=== PATIENT | male | born 1990 | race Caucasian/White ===

== ENCOUNTER 2018-04-24 10:33 | Emergency (ER) | payer OTHER ==
[~2018-04-24] VITALS: Wt 70.3 kg
--- NOTE | 2018-04-24 16:04 | ERD ---
ER Documentation Chief Complaint Chief Complaint withdrawing from heroin; last use this AM; L arm pain fr abscess HPI 27-year-old male with a history of heroin abuse presenting with complaints of left upper arm lump that he has had for several days. This started after he missed his vein while injecting heroin. He complains of pain at the site. Currently he states he is withdrawing from heroin with body aches and does not feel well. No fevers or chills. He has had nausea and vomiting prior to arrival but not currently. He denies any current abdominal pain. His last use of heroin was today. ROS All systems reviewed and are negative except as per history of present illness. Medications Home Meds Active Scripts Naloxone HCl nasal spray (Narcan 4 mg/0.1 mL nasal) 4 Mg [place], 4 MG NS .Q2-3MIN for OPIOID OVERDOSE, #2 SPRAY 0 Refills [place] 0.1 mL into one nostril. Repeat with second device into other nostril after 2-3 minutes if no or minimal response Prov:ROGER SÁNCHEZ MD 04/24/18 Allergies Allergies: Coded Allergies: No Known Allergy (Unverified , 04/24/18) PMhx/Soc Hx Alcohol Use: Yes Hx Substance Use: Yes (Marijuana, heroin) Hx Tobacco Use: Yes Smoking Status: Current every day smoker FmHx Family History: No diabetes Physical Exam Vitals Vital Signs Date Temp Pulse Resp B/P (MAP) Pulse Ox O2 O2 Flow FiO2 Time Delivery Rate 04/24/18 97.8 87 20 141/79 97 12:21 (99) Physical Exam Const: No acute distress Head: Atraumatic Eyes: Normal Conjunctiva. Constricted pupils bilaterally, reactive to light ENT: Normal External Ears, Nose and Mouth. Neck: Full range of motion. No meningismus. Resp: Clear to auscultation bilaterally Cardio: Regular rate and rhythm, no murmurs. 2+ radial pulses bilaterally Abd: Soft, non tender, non distended. Normal bowel sounds Skin: No petechiae or rashes Back: No midline or flank tenderness Ext: No cyanosis, or edema. There is a lump at the antecubital fossa that has no overlying redness, or fluctuance. Nontender to palpation. Track dorado noted in bilateral upper extremities with no evidence of abscess or cellulitis. Neur: Somnolent but arousable, appears intoxicated. Normal speech, moving all extremities, no facial asymmetry Psych: Normal Mood and Affect Procedures/MDM Initial Nursing notes reviewed. Previous Medical Records requested via the Electronic Health Record. EMERGENCY DEPARTMENT COURSE / MEDICAL DECISION MAKING: Patient presents with left upper extremity mass for the past few days. This happened after he injected heroin outside of the vein. There is no evidence of abscess or cellulitis on exam. Vitals are stable. Although he is complaining of withdrawal from heroin, he is not having any signs or symptoms of withdrawal at this time. He states that he went to [facility] and he states he sent him to the emergency room. I had social work evaluate him and discuss outpatient rehab for drug use. He was provided with a list of substance abuse clinics. I have a low suspicion for serious bacterial infection. No evidence of bacteremia. Patient stable for discharge. Patient's blood pressure was elevated (>120/80) but appears stable without evidence of hypertensive emergency or urgency. The patient was counseled about the risks of hypertension and urged to pursue outpatient monitoring and therapy within a week with their primary care physician. Departure Diagnosis: Primary Impression: Localized swelling, mass and lump, left upper limb Additional Impression: Heroin abuse Condition: Stable ROGER SÁNCHEZ MD Apr 24, 2018 16:04
[2018-04-24] MEDS ORDERED: NALO4SPR NS (16:30)
== END 2018-04-24 17:51 | disposition left against medical advice (07) ==
LOC: E/R 10:33
DX: R22.32 Localized swelling, mass and lump, left upper limb (principal); F17.210 Nicotine dependence, cigarettes, uncomplicated; F11.10 Opioid abuse, uncomplicated; R40.2142 Coma scale, eyes open, spontaneous, at arrival to emergency department; R40.2362 Coma scale, best motor response, obeys commands, at arrival to emergency department; R40.2252 Coma scale, best verbal response, oriented, at arrival to emergency department
CPT/HCPCS: 99283

== ENCOUNTER 2018-04-26 02:12 | Emergency (ER) | payer OTHER ==
[~2018-04-26] VITALS: Ht 170.2 cm; Wt 98.2 kg
[~2018-04-26 02:12] MED LIST: NALO4SPR NS
[2018-04-26 02:17] VITALS: BP 130/59; PULSE 105; RESP 20; Ht 170.2 cm; Wt 98.2 kg
[2018-04-26] MEDS ORDERED: ACETAMINOPHEN 500 MG TAB PO STA (06:39)
[2018-04-26] MEDS ORDERED: TRIMETHOPRIM/SULFAMETHOX (DS) TAB PO ONE (07:00)
[2018-04-26] MEDS ORDERED: LIDOCAINE 1% (MDV) 20 ML INJ SC ONE (07:00)
[2018-04-26] MEDS ORDERED: CEPHALEXIN 500 MG CAP PO ONE (07:00)
[2018-04-26] MEDS ORDERED: SULF1TAB31 PO (07:20)
[2018-04-26] MEDS ORDERED: CEPH-443 PO (07:20)
[2018-04-26] MEDS ORDERED: IBUP-1542 PO (07:20)
--- NOTE | 2018-04-26 07:23 | ERD ---
ER Documentation Chief Complaint Chief Complaint states pain/swelling/abscess left arm HPI This 27-year-old male presents with left upper extremity redness, swelling and discharge. Patient is admitted injection drug user of heroin. Denies fevers, chest pain, shortness of breath. Patient denies previous history of abscess being drained. ROS All systems reviewed and are negative except as per history of present illness. Medications Home Meds Active Scripts Cephalexin* (Keflex*) 500 Mg Capsule, 500 MG PO QID for 7 Days, CAP Prov:HARRIET MONTALVO MD 04/26/18 Sulfamethoxazole/Trimethoprim* (Bactrim Ds* Tablet) 1 Each Tablet, 1 TAB PO BID for 7 Days, #14 TAB Prov:HARRIET MONTALVO MD 04/26/18 Ibuprofen* (Motrin*) 600 Mg Tab, 600 MG PO Q6, #15 TAB Prov:HARRIET MONTALVO MD 04/26/18 Naloxone HCl nasal spray (Narcan 4 mg/0.1 mL nasal) 4 Mg [place], 4 MG NS .Q2-3MIN for OPIOID OVERDOSE, #2 SPRAY 0 Refills [place] 0.1 mL into one nostril. Repeat with second device into other nostril after 2-3 minutes if no or minimal response Prov:ROGER SÁNCHEZ MD 04/24/18 Allergies Allergies: Coded Allergies: No Known Allergy (Unverified , 04/26/18) PMhx/Soc History of Surgery: No Anesthesia Reaction: No Hx Neurological Disorder: No Hx Respiratory Disorders: No Hx Cardiac Disorders: No Hx Psychiatric Problems: Yes (IV DRUG ABUSE) Hx Miscellaneous Medical Probl: No (IV DRUG USE AND ABUSE) Hx Alcohol Use: Yes Hx Substance Use: Yes (Marijuana, heroin) Hx Tobacco Use: Yes Smoking Status: Heavy tobacco smoker FmHx Family History: No diabetes, No coronary disease, No other Physical Exam Vitals Vital Signs Date Temp Pulse Resp B/P (MAP) Pulse Ox O2 O2 Flow FiO2 Time Delivery Rate 04/26/18 36.8 07:02 04/26/18 98.2 105 20 130/59 99 02:17 (82) Physical Exam Const: No acute distress Head: Atraumatic Eyes: Normal Conjunctiva ENT: Normal External Ears, Nose and Mouth. Neck: Full range of motion. No meningismus. Resp: Clear to auscultation bilaterally Cardio: Regular rate and rhythm, no murmurs Abd: Soft, non tender, non distended. Normal bowel sounds Skin: No petechiae or rashes Back: No midline or flank tenderness Ext: No cyanosis, or edema. Left distal biceps induration, slight fluctuance, erythema. Minimal active discharge. Left upper extremities Novastan intact. Neur: Awake and alert Psych: Normal Mood and Affect Results 24 hrs Current Medications Medications Dose Sig/Oniel Start Time Status Last (Trade) Ordered Route PRN Stop Time Admin Dose Reason Admin Lidocaine 20 ml ONCE ONCE 04/26/18 DC (Xylocaine SC 07:00 1% (Mdv) 20 04/26/18 07:01 ml) 500 mg ONCE STAT 04/26/18 DC 04/26/18 Acetaminophen PO 06:39 07:02 (Tylenol 04/26/18 06:40 Tab) Cephalexin 500 mg ONCE ONCE 04/26/18 DC 04/26/18 (Keflex) PO 07:00 07:02 04/26/18 07:01 1 tab ONCE ONCE 04/26/18 DC 04/26/18 Trimethoprim/ PO 07:00 07:02 04/26/18 07:01 Sulfamethoxaz ole (Bactrim (Ds)) Procedures/MDM Patient presents with signs and symptoms early abscess in the left biceps area. No current signs of necrotizing fasciitis, sepsis, endocarditis, ischemia or deficits. Procedure note-patient was given Bactrim and Keflex by mouth. The upper extremity was prepped with Betadine. 3 cc lidocaine was used for local infiltration. #11 scalpel was used to incise the wound. Loculations were broken up with a probe. A small amount of pus was expressed. Wound was packed with approximately 4 cm of quarter inch gauze and wound was dressed and patient tolerated procedure well. Patient was discharged home with recommendations for 2-day wound check and gauze removal. Return sooner for worsening redness, fevers, new worsening symptoms. The patient was stable with no new complaints during the ER course. Clinically, there is no current evidence to suggest meningitis, sepsis, acute abdomen, pneumonia, stroke, acute coronary syndrome, pulmonary embolism, aortic dissection or any other emergent condition appearing to require further evaluation or hospitalization. Patient counseled regarding my diagnostic impression and care plan. Prior to discharge all questions answered. Pt agrees with treatment plan and understands strict return precautions. Pt is instructed to follow up with primary care provider within 24-48 hours. Precautionary instructions provided including instructions to return to the ER if not improving or for any worsening or changing symptoms or concerns. Departure Diagnosis: Primary Impression: Abscess Condition: Stable Patient Instructions: Abscess, Incision And Drainage Additional Instructions: Wound check in 2-3 days for gauze removal. Warm compresses at home. Recheck sooner for worsening redness, fevers, new or worsening symptoms. HARRIET MONTALVO MD Apr 26, 2018 07:23
== END 2018-04-26 08:10 | disposition home or self-care (01) ==
LOC: FTE 02:12
DX: L02.414 Cutaneous abscess of left upper limb (principal); F17.210 Nicotine dependence, cigarettes, uncomplicated
CPT/HCPCS: 10060; Z7502; Z7610

== ENCOUNTER 2018-05-20 00:07 | Emergency (ER) | payer SELFPAY ==
[~2018-05-20] VITALS: Ht 167.6 cm; Wt 71.0 kg
[~2018-05-20 00:07] MED LIST changes: +BACI28.34 TOP; +CEPH-443 PO; +HYDR-3498 PO; +IBUP-1542 PO; +MUPI22OI2 TOP; +SULF1TAB31 PO
[2018-05-20 00:23] VITALS: BP 140/55; PULSE 84; RESP 18; Ht 167.6 cm; Wt 71.0 kg
== END 2018-05-20 04:45 | disposition left against medical advice (07) ==
LOC: FTE 00:07
DX: Z53.21 Procedure and treatment not carried out due to patient leaving prior to being seen by health care provider (principal)